=== PATIENT | male | born 1970 | race Caucasian/White ===

== ENCOUNTER 2023-01-24 07:43 | Day surgery (SDC) | payer OTHER ==
[2023-01-23 12:48] VITALS: BMI 28.5
[2023-01-24] MEDS ORDERED: Midazolam HCl 2 mg/2 ml Vial ONE (08:00)
[2023-01-24] MEDS ORDERED: Bupivacaine PF 0.5% 30 ML VIAL ONE (08:00)
[2023-01-24] MEDS ORDERED: Lidocaine 1% (PF) 30 ML VIAL ONE (08:00)
[2023-01-24] MEDS ORDERED: fentaNYL 50 mcg/mL 1 mL Vial ONE (08:00)
[2023-01-24] MEDS ORDERED: CEFAZOLIN 2 GM VIAL ONE (10:05)
[2023-01-24] MEDS ORDERED: Sodium Chloride 0.9% 100 ML ONE (10:05)
[2023-01-24] MEDS ORDERED: fentaNYL PF 100 MCG/2 ML SYRINGE ONE (10:10)
[2023-01-24] MEDS ORDERED: HYDROmorphone 0.5 MG/0.5 ML SYRINGE ONE (10:10)
[2023-01-24] MEDS ORDERED: Ondansetron PF 4 MG/2 ML Vial ONE (10:30)
[2023-01-24] MEDS ORDERED: Bupivacaine HCl 0.5%/Epinephrine 1:200,000/PF 30 ml Vial ONE (10:30)
[2023-01-24] MEDS ORDERED: Dexamethasone 20 MG/5 ML VIAL ONE (10:30)
[2023-01-24] MEDS ORDERED: ePHEDrine Sulfate 50 MG/10 ML VIAL ONE (10:30)
[2023-01-24] MEDS ORDERED: Ketorolac Tromethamine 30 MG/ML VIAL ONE (10:30)
[2023-01-24] MEDS ORDERED: PHENYLEPHRINE-NS 100 MCG/ML 10 ML SYRINGE ONE (10:30)
[2023-01-24] MEDS ORDERED: PROPOFOL 200 MG/20 ML VIAL ONE (10:30)
[2023-01-24] MEDS ORDERED: Lidocaine 1% PF 5 ML VIAL ONE (10:30)
== END 2023-01-24 14:20 | disposition home or self-care (01) ==
LOC: SDC 07:43
PROVIDERS: ATTEND Orthopaedic Surgery
PROC: 0PSK04Z Reposition Right Ulna with Internal Fixation Device, Open Approach (ICD-10-PCS; principal; 2023-01-24)
DX: S52.201A Unspecified fracture of shaft of right ulna, initial encounter for closed fracture (principal); M10.9 Gout, unspecified; W20.8XXA Other cause of strike by thrown, projected or falling object, initial encounter
CPT/HCPCS: C1713; C1874; J1100; J1170; J1885; J2001; J2250; J2405; J2704; J3010; J3490; S0020

== ENCOUNTER 2025-05-16 08:49 | Day surgery (SDC) | payer BC ==
[2025-05-16] MEDS ORDERED: cefTRIAXone (ROCEPHIN) 1 GM VIAL ONE (10:00)
[2025-05-16] MEDS ORDERED: Ondansetron PF 4 MG/2 ML Vial ONE (10:27)
[2025-05-16] MEDS ORDERED: Lidocaine 1% PF 5 ML VIAL ONE (10:27)
[2025-05-16] MEDS ORDERED: fentaNYL PF 100 MCG/2 ML SYRINGE ONE (10:28)
[2025-05-16] MEDS ORDERED: PROPOFOL 200 MG/20 ML VIAL ONE (11:15)
== END 2025-05-16 13:17 | disposition home or self-care (01) ==
LOC: SDC 08:49
PROVIDERS: ATTEND Urology
PROC: 0T768DZ Dilation of Right Ureter with Intraluminal Device, Via Natural or Artificial Opening Endoscopic (ICD-10-PCS; principal; 2025-05-16)
DX: N13.2 Hydronephrosis with renal and ureteral calculous obstruction (principal)
CPT/HCPCS: C1769; C2617; J0696; J1100; J2405; J2704; Q9967

== ENCOUNTER 2025-05-26 10:39 | Day surgery (SDC) | payer BC ==
[2025-05-20 15:58] VITALS: BMI 29.4
[2025-05-26] MEDS ORDERED: fentaNYL PF 100 MCG/2 ML SYRINGE ONE (14:29)
[2025-05-26] MEDS ORDERED: PROPOFOL 20 ML ONE (14:29)
[2025-05-26] MEDS ORDERED: Lidocaine 1% PF 5 ML VIAL ONE (14:30)
[2025-05-26] MEDS ORDERED: LevoFLOXacin D5W 500 mg (100 mL) BAG ONE (14:52)
[2025-05-26] MEDS ORDERED: Rocuronium Bromide 10 MG/ML (10ML VIAL) ONE (15:17)
[2025-05-26] MEDS ORDERED: Glycopyrrolate 0.2 MG/ML 5 ML SYRINGE ONE (15:17)
[2025-05-26] MEDS ORDERED: PHENYLEPHRINE-NS 100 MCG/ML 10 ML SYRINGE ONE (15:31)
[2025-05-26] MEDS ORDERED: SUGAMMADEX SODIUM 200 MG/2 ML VIAL ONE (16:07)
[2025-05-26] MEDS ORDERED: Ondansetron PF 4 MG/2 ML Vial ONE (16:08)
[2025-05-26] MEDS ORDERED: Ketorolac Tromethamine 30 MG (1 mL) VIAL ONE (16:18)
[2025-05-26] MEDS ORDERED: Oxybutynin 5 MG TAB ONE (16:49)
== END 2025-05-26 19:05 | disposition home or self-care (01) ==
LOC: SDC 10:39
PROVIDERS: ATTEND Urology
PROC: 0TC08ZZ Extirpation of Matter from Right Kidney, Via Natural or Artificial Opening Endoscopic (ICD-10-PCS; principal; 2025-05-26)
PROC: 0T768DZ Dilation of Right Ureter with Intraluminal Device, Via Natural or Artificial Opening Endoscopic (ICD-10-PCS; principal; 2025-05-26)
DX: N13.2 Hydronephrosis with renal and ureteral calculous obstruction (principal)
CPT/HCPCS: 74420; 82365; 88300; C1747; C1769; C2617; J1100; J1885; J1956; J2250; J2405; J2704